=== PATIENT | female | born 1995 | race Hispanic/Latino ===

== ENCOUNTER 2020-06-27 14:28 | Emergency (ER) | payer MEDICAID, SELFPAY ==
[2020-06-27 15:14] LABS: #Eosinphils 0.2 thou/uL (0.0-0.7); #Lymphocytes 1.7 thou/uL (1.20-3.40); #Monocytes 0.6 thou/uL (0.11-0.59); #Neutrophils 6.8 thou/uL (1.40-6.50); %Basophils 0.5 % (0.0-1.0); %Eosinophils 1.8 % (0.0-10.0); %Lymphocytes 18.1 % (21.0-51.0); %Monocytes 6.2 % (0.0-10.0); %Neutrophils 73.3 % (42.0-75.0); Hemoglobin 8.3 g/dL (12.0-16.0); Mean Corpuscular HGB CONC 30.3 g/dL (32.0-36.0); Mean Corpuscular Hemoglobin 20.1 pg (27.0-31.0); Mean Corpuscular Volume 66.2 fL (78.0-98.0); Mean Platelet Volume 10.1 fL (7.4-10.4); Platelet Count 466 thou/uL (130-400); RBC Distribution Width 18.8 % (11.5-14.5); Red Blood Cell (RBC) Count 4.16 mill/uL (4.20-5.40); White Blood Cell (WBC) Count 9.3 thou/uL (4.8-10.8)
[2020-06-27 15:44] LABS: Anisocytosis SLIGHT = 6-15 cells (100X) (0-5/hpf); Hypochromia SLIGHT = 6-15 cells (100X) (0-5/hpf); MDiff Complete? YES; Microcytosis SLIGHT = 6-15 cells (100X) (0-5/hpf); Ovalocytes SLIGHT = 2-5 cells (100X) (0-1/hpf); Platelet Morphology Comment Appears Increased; Polychromasia SLIGHT = 2-3 cells (100X) (0-2/hpf); Target Cells SLIGHT = 2-5 cells (100X) (0-1/hpf)
[2020-06-27 15:48] LABS: Bacteria/HPF None Seen HPF (None Seen); Bilirubin Negative (Negative); Blood, Urine Negative (Negative); Clarity Clear (Clear); Glucose, Urine (Dipstick) Normal (Negative); Ketone, Urine 20 mg/dL (Negative); Leukocyte 75 Leu/uL (Negative); Nitrite Negative (Negative); Protein, Urine (Dipstick) 20 mg/dL (Neg-Trace); RBC/HPF 0-3 HPF (0-3); Specific Gravity, Urine 1.027 (1.002-1.036); Squamous Epithelial 0-3 HPF (0-3); Urobilinogen Normal mg/dL (Less than 2); pH, Urine 5.5 (5.0-9.0)
--- NOTE | 2020-06-27 15:48 | ULT ---
Exam: Pelvic ultrasound HISTORY: Pelvic pain COMPARISON: None TECHNIQUE: Multiple grayscale and color Doppler images were obtained in a transabdominal and transvag inal pelvic ultrasound. Spectral analysis of the Doppler waveforms of the ovaries were performed. FINDINGS: Fluid collection is seen in the endometrial canal which contains both a pole and yolk sac. Card iac Doppler does demonstrates heart tones with a heart rate of 114 bpm. The crown-rump length measures 0.69 cm corresponding to gestational age by ultrasound of 6 weeks and 4 days. Small h ypoechoic area measuring 8 mm is seen lateral to the gestational sac suggesting a small subchorionic hemorrhage. RIGHT OVARY: Normal flow, without focal mass. LEFT OVARY: Normal flow, without focal mass. IMPRESSION: 1. Small subchorionic hemorrhage. Continued follow-up evaluation is recommended. 2. Single intrauterine gestation with heart tones documented. Gestational age by measurement of the crown-rump length is 6 weeks and 4 days.
[2020-06-28 08:29] LABS: SARS-CoV-2 PCR by NAA Indeterminate (NotDetected)
== END 2020-06-27 16:39 | disposition home or self-care (01) ==
LOC: ERS 14:28
DX: O26.851 Spotting complicating pregnancy, first trimester (principal); O99.011 Anemia complicating pregnancy, first trimester; O20.8 Other hemorrhage in early pregnancy; O23.41 Unspecified infection of urinary tract in pregnancy, first trimester; D64.9 Anemia, unspecified; Z20.822 Contact with and (suspected) exposure to COVID-19; D72.829 Elevated white blood cell count, unspecified; Z3A.01 Less than 8 weeks gestation of pregnancy
CPT/HCPCS: 36415; 76856; 81003; 81015; 84702; 85025; 86900; 86901; 87086; 87635; 93976; U0003; U0005

== ENCOUNTER 2020-07-29 14:41 | Emergency (ER) | payer MEDICAID, OTHER ==
[2020-07-29 15:27] LABS: Bilirubin Negative (Negative); Blood, Urine Negative (Negative); Clarity Clear (Clear); Glucose, Urine (Dipstick) Normal (Negative); Ketone, Urine Negative (Negative); Leukocyte Negative Leu/uL (Negative); Nitrite Negative (Negative); Protein, Urine (Dipstick) Negative (Neg-Trace); Specific Gravity, Urine 1.026 (1.002-1.036); Urobilinogen Normal mg/dL (Less than 2)
[2020-07-29 15:29] LABS: #Basophils 0.1 thou/uL (0.0-0.2); #Eosinphils 0.1 thou/uL (0.0-0.7); #Lymphocytes 1.7 thou/uL (1.20-3.40); #Monocytes 0.5 thou/uL (0.11-0.59); #Neutrophils 6.3 thou/uL (1.40-6.50); %Basophils 0.7 % (0.0-1.0); %Eosinophils 1.4 % (0.0-10.0); %Lymphocytes 19.1 % (21.0-51.0); %Monocytes 6.2 % (0.0-10.0); %Neutrophils 72.6 % (42.0-75.0); Hemoglobin 8.5 g/dL (12.0-16.0); Mean Corpuscular HGB CONC 30.4 g/dL (32.0-36.0); Mean Corpuscular Hemoglobin 20.3 pg (27.0-31.0); Mean Corpuscular Volume 66.9 fL (78.0-98.0); Platelet Count 471 thou/uL (130-400); RBC Distribution Width 19.3 % (11.5-14.5); Red Blood Cell (RBC) Count 4.17 mill/uL (4.20-5.40); White Blood Cell (WBC) Count 8.6 thou/uL (4.8-10.8)
[2020-07-29 15:46] LABS: ALT (SGPT) 11 U/L (8-55); AST (SGOT) 16 U/L (5-34); Albumin 3.9 g/dL (3.5-5.0); Alkaline Phosphatase 47 U/L (40-110); Anion Gap 14 mmol/L (10-20); BUN (Urea Nitrogen) 6 mg/dL (7.0-18.7); Bilirubin, Total 0.4 mg/dL (0.2-1.2); Calc. Creatinine Clearance 0 mL/min (70-130); Calcium 8.6 mg/dL (7.8-10.44); Carbon Dioxide 22 mmol/L (22-29); Chloride 105 mmol/L (98-107); Globulin 3.1 g/dL (2.4-3.5); Glucose 75 mg/dL (70-105); Potassium 3.8 mmol/L (3.5-5.1); Sodium 137 mmol/L (136-145)
[2020-07-29] MEDS ORDERED: Acetaminophen 500 MG TAB ONE (17:13)
== END 2020-07-29 17:19 | disposition home or self-care (01) ==
LOC: ERS 14:41
DX: O43.891 Other placental disorders, first trimester (principal); Z3A.12 12 weeks gestation of pregnancy
CPT/HCPCS: 36415; 76856; 80053; 81003; 84702; 85025; 87086; 93976

== ENCOUNTER 2020-09-04 02:41 | Emergency (ER) | payer OTHER ==
[2020-09-04 03:16] LABS: Bilirubin Negative (Negative); Blood, Urine Negative (Negative); Clarity Clear (Clear); Glucose, Urine (Dipstick) Normal (Negative); Ketone, Urine Negative (Negative); Leukocyte Negative Leu/uL (Negative); Nitrite Negative (Negative); Protein, Urine (Dipstick) 20 mg/dL (Neg-Trace); Urobilinogen 3 mg/dL (Less than 2); pH, Urine 5.5 (5.0-9.0)
== END 2020-09-04 03:33 | disposition home or self-care (01) ==
LOC: ERS 02:41
DX: O99.891 Other specified diseases and conditions complicating pregnancy (principal); R10.30 Lower abdominal pain, unspecified; Z3A.16 16 weeks gestation of pregnancy
CPT/HCPCS: 81003; 99281

== ENCOUNTER 2020-09-09 09:37 | Emergency (ER) | payer OTHER ==
[2020-09-09 10:18] LABS: #Eosinphils 0.4 thou/uL (0.0-0.7); #Lymphocytes 1.6 thou/uL (1.20-3.40); #Monocytes 0.5 thou/uL (0.11-0.59); #Neutrophils 6.3 thou/uL (1.40-6.50); %Basophils 0.4 % (0.0-1.0); %Eosinophils 4.2 % (0.0-10.0); %Monocytes 5.7 % (0.0-10.0); %Neutrophils 71.7 % (42.0-75.0); Hemoglobin 8.1 g/dL (12.0-16.0); Mean Corpuscular HGB CONC 30.5 g/dL (32.0-36.0); Mean Corpuscular Hemoglobin 20.3 pg (27.0-31.0); Mean Corpuscular Volume 66.6 fL (78.0-98.0); Mean Platelet Volume 10.1 fL (7.4-10.4); Platelet Count 441 thou/uL (130-400); RBC Distribution Width 17.5 % (11.5-14.5); Red Blood Cell (RBC) Count 3.99 mill/uL (4.20-5.40); White Blood Cell (WBC) Count 8.8 thou/uL (4.8-10.8)
== END 2020-09-09 12:05 | disposition home or self-care (01) ==
LOC: ERS 09:37
DX: O20.9 Hemorrhage in early pregnancy, unspecified (principal); Z3A.17 17 weeks gestation of pregnancy; W01.0XXA Fall on same level from slipping, tripping and stumbling without subsequent striking against object, initial encounter
CPT/HCPCS: 36415; 76815; 84702; 85025; 86900; 86901

== ENCOUNTER 2021-01-19 04:23 | Emergency (ER) | payer OTHER ==
[2021-01-19 08:49] LABS: Clarity Clear (Clear); Specific Gravity, Urine 1.015 (1.002-1.036); pH, Urine 6.5 (5.0-9.0)
[2021-01-19 08:50] LABS: Bilirubin Negative (Negative); Blood, Urine Negative (Negative); Glucose, Urine (Dipstick) Negative (Negative); Ketone, Urine Negative (Negative); Leukocyte Negative Leu/uL (Negative); Nitrite Negative (Negative); Protein, Urine (Dipstick) 10 mg/dL (Neg-Trace); RBC/HPF 0-3 HPF (0-3); Urobilinogen Normal mg/dL (Less than 2); WBC/HPF 0-3 HPF (0-3)
[2021-01-19 08:51] LABS: Bacteria/HPF None Seen HPF (None Seen); Squamous Epithelial 0-3 HPF (0-3)
== END 2021-01-19 06:13 | disposition home or self-care (01) ==
LOC: ERS 04:23
DX: O23.43 Unspecified infection of urinary tract in pregnancy, third trimester (principal); Z3A.36 36 weeks gestation of pregnancy
CPT/HCPCS: 81003; 99284

== ENCOUNTER 2021-03-28 19:19 | Emergency (ER) | payer OTHER ==
[2021-03-28] MEDS ORDERED: Acetaminophen 500 MG TAB ONE (21:08)
== END 2021-03-28 21:12 | disposition home or self-care (01) ==
LOC: ERS 19:19
DX: S20.212A Contusion of left front wall of thorax, initial encounter (principal); V49.9XXA Car occupant (driver) (passenger) injured in unspecified traffic accident, initial encounter
CPT/HCPCS: 71046

== ENCOUNTER 2021-12-02 20:39 | Emergency (ER) | payer OTHER | END 2021-12-02 21:07 | disposition home or self-care (01) | LOC: ERS 20:39 | DX: R51.9 Headache, unspecified (principal); J34.89 Other specified disorders of nose and nasal sinuses; R50.9 Fever, unspecified; R19.7 Diarrhea, unspecified; Z20.822 Contact with and (suspected) exposure to COVID-19 | CPT/HCPCS: 87804; 99284; U0003; U0005 ==

== ENCOUNTER 2021-12-05 06:59 | Emergency (ER) | payer OTHER ==
[2021-12-05] MEDS ORDERED: Acetaminophen 500 MG TAB ONE (07:33)
== END 2021-12-05 08:47 | disposition home or self-care (01) ==
LOC: ERS 06:59
DX: U07.1 COVID-19 (principal); J06.9 Acute upper respiratory infection, unspecified
CPT/HCPCS: 99284; U0003; U0005

== ENCOUNTER 2022-11-30 19:25 | Emergency (ER) | payer MEDICARE, OTHER ==
[2022-11-30] MEDS ORDERED: predniSONE 20 MG TAB ONE (21:05)
[2022-11-30] MEDS ORDERED: Famotidine 20 MG TAB ONE (21:05)
[2022-11-30] MEDS ORDERED: diphenhydrAMINE 25 MG CAP ONE (21:05)
== END 2022-11-30 22:17 | disposition home or self-care (01) ==
LOC: ERS 19:25
DX: T78.1XXA Other adverse food reactions, not elsewhere classified, initial encounter (principal)
CPT/HCPCS: 99284; J7512

== ENCOUNTER 2022-12-20 11:05 | Emergency (ER) | payer OTHER | END 2022-12-20 11:38 | disposition home or self-care (01) | LOC: ERS 11:05 | DX: I97.630 Postprocedural hematoma of a circulatory system organ or structure following a cardiac catheterization (principal) | CPT/HCPCS: 99281 ==

== ENCOUNTER 2023-03-01 02:29 | Emergency (ER) | payer OTHER, SELFPAY ==
[2023-03-01] MEDS ORDERED: EPINEPHrine 1 MG/ML AMP ONE (02:49)
[2023-03-01] MEDS ORDERED: diphenhydrAMINE 50 MG/ML VIAL ONE (02:50)
[2023-03-01] MEDS ORDERED: Famotidine/PF 20 mg/2ml Vial ONE (02:51)
[2023-03-01] MEDS ORDERED: methylPREDNISolone Sod Succ/PF 125 MG/2 ML VIAL ONE (02:51)
== END 2023-03-01 04:47 | disposition home or self-care (01) ==
LOC: ERS 02:29
DX: T78.40XA Allergy, unspecified, initial encounter (principal)
CPT/HCPCS: 96374; 96375; J0171; J1200; J2930; S0028

== ENCOUNTER 2023-03-02 01:17 | Emergency (ER) | payer SELFPAY ==
[2023-03-02] MEDS ORDERED: Dexamethasone 10 MG/ML VIAL ONE (01:56)
[2023-03-02] MEDS ORDERED: diphenhydrAMINE 50 MG/ML VIAL ONE (01:56)
[2023-03-02] MEDS ORDERED: Famotidine/PF 20 mg/2ml Vial ONE (01:56)
== END 2023-03-02 03:30 | disposition home or self-care (01) ==
LOC: ERS 01:17
DX: T78.40XA Allergy, unspecified, initial encounter (principal)
CPT/HCPCS: 93005; 96374; 96375; J1100; J1200; S0028

== ENCOUNTER 2025-01-16 15:02 | Emergency (ER) | payer SELFPAY ==
[2025-01-16] MEDS ORDERED: predniSONE 20 MG TAB ONE (18:52)
== END 2025-01-16 18:57 | disposition home or self-care (01) ==
LOC: ERS 15:02
DX: T63.481A Toxic effect of venom of other arthropod, accidental (unintentional), initial encounter (principal)
CPT/HCPCS: 99282; J7512

== ENCOUNTER 2025-01-24 22:08 | Emergency (ER) | payer SELFPAY | END 2025-01-25 01:03 | disposition home or self-care (01) | LOC: ERS 22:08 | DX: L50.0 Allergic urticaria (principal) | CPT/HCPCS: 99283 ==

== ENCOUNTER → 2025-01-27 | Emergency (ER) | payer SELFPAY | LOC: ERS 01:14 | DX: Z53.21 Procedure and treatment not carried out due to patient leaving prior to being seen by health care provider (principal) ==